=== PATIENT | male | born 1940 | race Caucasian/White ===

== ENCOUNTER → 2018-01-04 | Outpatient (CLI) | payer MEDICARE, OTHER ==
[~2018-01-04] MED LIST: AML5 PO; ASPI-715 PO; ATOR20TA65 PO; ATOR40TA24 PO; ATR80PT PO; BIOT250012 PO; BISO10TA PO; BISO1TAB95 PO; BP MEDS; CA C1TAB10 PO; CALC500T42 PO; CALCIUM; CETI-169 PO; CETI5SOL4 PO; CHOL100052 PO; CLI150 PO; CLON-298 PO; CLOP75TA43 PO; CODE118S5 PO; EVERFLEX PO; FISH OIL; FISH OIL1 CAP PO; FLUT16SP19 NS; GLUC-198 PO; GLUC500C29 PO; GLUCOSAMINE; GOLYTE PO; GUAI200T22 PO; HYDR-3250 PO; IPRA15SP7 NS; LACT1CAP6 PO; LEVO25TA56 PO; LEVO50TA86 PO; LEVO75TA73 PO; LISI-362 PO; MELA5TAB6 PO; METO50TA19 PO; MON10 PO; MULT-27 PO; MULT1CAP41 PO; PRAS10TA4 PO; RED YEAST; RED600CA19 PO; UBID100C48 PO; VITAMINS; [UNRECOGNIZED DRUG - OTHER] PO; [UNRECOGNIZED DRUG - REMARK] PO
== END ==
LOC: LAB 08:40
PROVIDERS: ATTEND Urology
DX: C61 Malignant neoplasm of prostate (principal); N52.9 Male erectile dysfunction, unspecified
CPT/HCPCS: 36415; 84153; 84403

== ENCOUNTER 2018-01-29 01:11 | Day surgery (SDC) | payer MEDICARE, OTHER ==
[~2018-01-29] VITALS: Ht 175.3 cm; Wt 79.4 kg
[~2018-01-29 01:11] MED LIST changes: +GUAI600T84; +GUAI600T84 PO; +MONT10TA PO
[2018-01-29] MEDS ORDERED: LIDOCAINE MPF 1% 5 ML VIAL ONE (06:53)
[2018-01-29] MEDS ORDERED: PROPOFOL EMUL(*) 10MG/ML 20 ML 60 ML ONE (06:53)
[2018-01-29] MEDS ORDERED: LIDOCAINE/SOD BICARB 8.4% SYR ID ONE (07:00)
[2018-01-29] MEDS ORDERED: NORMOSOL R SOLN(*) 1000 ML BAG 1,000 ML IV PRN (07:00)
[2018-01-29 07:19] VITALS: BP 154/88
[2018-01-29 08:25] VITALS: BP 102/69
--- NOTE | 2018-01-29 08:34 | Short(Outpt) Discharge Summary ---
Discharge Summary Reason for Hosp/Final Diag: (1) Family history of colon cancer Hospital Course & Plan: Colonoscopy with polypectomy x2 completed without problems. Departure Discharge to: Home, Self Care Discharge Instructions Home Meds Active Scripts Peg/Electrolytes (GOLYTELY SOLUTION) 4,000 Ml Sol[place], 1 GAL PO ONCE, #1 GAL 0 Refills Prov:HYUN PISANO MD 12/10/17 Ipratropium [place] 0.06% Ns (IPRATROPIUM BROMIDE 0.06% NS) 15 Ml [place], 2 SPRAYS NS BID, #1 BOT 6 Refills Prov:ELAYNE RECINOS JR, MD 06/26/17 Reported Medications Montelukast Sodium (SINGULAIR) 10 Mg Tablet, 1 TAB PO QDAY, TAB 01/23/18 Cetirizine Hcl (CETIRIZINE HCL) 10 Mg Tablet, 10 MG PO QDAY, TAB 01/23/18 Melatonin (MELATONIN) 5 Mg Tablet, 5 MG PO QHS 12/11/17 Levothyroxine Sodium (LEVOTHYROXINE SODIUM) 50 Mcg Tablet, 50 MCG PO QDAY, TAB 06/26/17 Atorvastatin Calcium (ATORVASTATIN CALCIUM) 20 Mg Tablet, 1 TAB PO QDAY, TAB 06/26/17 Fluticasone Prop 50 Mcg Ns (FLONASE 50 MCG NS) 16 Gm [place].susp, 1 SPRAY NS BID , BOT 06/26/16 Metoprolol Succinate (METOPROLOL SUCCINATE) 50 Mg Tab.er.24h, 1 TAB PO QDAY, TAB 06/26/16 Guaifenesin (GUAIFENESIN) 200 Mg Tablet, 200 MG PO DAILY 06/23/16 Ca Carbonate/Vitamin D3/Vit K (Citracal Soft Chew) 1 Each Tab.chew, 2 TAB PO DAILY 06/23/16 Ubidecarenone (COQ-10) 100 Mg Capsule, 200 MG PO, CAPSULE 06/23/16 Biotin (BIOTIN) 2,500 Mcg Capsule, 5000 MCG PO DAILY, CAPSULE 06/23/16 [Everflex] No Conflict Check, 2 TAB PO DAILY 06/23/16 Mu-Vits-Min Th/Lycopene/Lutein (CENTRUM SILVER TABLET) 1 Each Tablet, 1 EACH PO QDAY 06/23/16 [Total Eyebright-M] No Conflict Check, 1 TAB PO DAILY 06/23/16 Lisinopril (LISINOPRIL) 10 Mg Tablet, 10 MG PO QDAY, TAB 06/23/16 Clonazepam (CLONAZEPAM) 0.5 Mg Tablet, 0.5 MG PO QHS, #6 TAB 06/23/16 Amlodipine Besylate (NORVASC (OR EQUIV)) 5 Mg Tab, 5 MG PO DAILY, 0 Refills 04/22/12 Aspirin (Aspirin) 81 Mg Tablet.dr, 81 MG PO DAILY, 0 Refills 09/11/09 Discontinued Reported Medications Guaifenesin (Guaifenesin ER) 600 Mg Tab.er.12h, 200 MG PO QDAY 01/23/18 Guaifenesin (Guaifenesin ER) 600 Mg Tab.er.12h, 200 01/23/18 Cetirizine Hcl (CETIRIZINE HCL) 10 Mg Tablet, 10 MG PO QDAY, TAB 12/11/17 Cholecalciferol (Vitamin D3) (VITAMIN D) 1,000 Unit Tablet, 1000 UNIT PO DAILY 06/23/16 Clopidogrel Bisulfate (PLAVIX) 75 Mg Tablet, 1 TAB PO QDAY, TAB 06/23/16 Calcium (Calcium) 500 Mg Tablet, 500 MG PO DAILY, 0 Refills 09/11/09 Diet: Regular Activity: As Tolerated Special Instructions: Your colonoscopy was completed without any problems and your prep was excellent (Good Job!!). I removed 2 small polyps from your colon and they were sent to pathology. My office will call you in the next week to let you know what the polyps are but more than likely you will need another colonoscopy in 5 years if your health is still good and you can tolerate the procedure. HYUN PISANO MD Jan 29, 2018 08:34
[2018-01-29 08:56] VITALS: BP 163/92
[2018-01-29 09:09] VITALS: BP 150/83
[2018-01-29 09:11] VITALS: BP 150/94
== END 2018-01-29 09:41 | disposition home or self-care (01) ==
LOC: OR 01:11
PROVIDERS: ATTEND Surgery
DX: Z12.11 Encounter for screening for malignant neoplasm of colon (principal); D12.4 Benign neoplasm of descending colon; D12.3 Benign neoplasm of transverse colon; Z80.0 Family history of malignant neoplasm of digestive organs
CPT/HCPCS: 00811; 45385; 88305; J2001; J2704

== ENCOUNTER → 2019-01-12 | Outpatient (CLI) | payer MEDICARE, OTHER ==
[~2019-01-12] MED LIST changes: -CLON-298 PO; +CLON-331 PO; +MELA5TAB3 PO; -MELA5TAB6 PO
== END ==
LOC: LAB 15:28
PROVIDERS: ATTEND Urology
DX: C61 Malignant neoplasm of prostate (principal)
CPT/HCPCS: 36415; 84153

== ENCOUNTER 2019-03-02 20:09 | Emergency (ER) | payer MEDICARE, OTHER ==
--- NOTE | 2019-03-02 20:27 | ER Report ---
History and Physical Time Seen By MD: 20:24 Hx. of Stated Complaint: PATIENT STATES THAT HIS NOSE BLEED STARTED ABOUT 20MIN AT HOME WHEN HE WAS BLOWING HIS NOSE. PATIENT STATES THAT HE HAS A HX OF THIS AND IS ALSO ON BLOOD THINNERS AND HAS HIGH BP HPI/ROS CHIEF COMPLAINT: Nosebleed HISTORY OF PRESENT ILLNESS: 78-year-old male patient presents to emergency room with complaint of a nosebleed. Patient states that he has a history of nosebleeds. Patient states he is known to have high blood pressure, he also is on Plavix. Patient states that he started bleeding approximately 20 years prior to arrival in the emergency room. He states he did put on a nasal clamp. Patient states she's not had any improvement since then. He's been coughing up some significant amounts of blood as well as coming out of his nose. He denies any trauma. He states he did blow his nose. REVIEW OF SYSTEMS: Respiratory: No cough, no dyspnea. Cardiovascular: No chest pain, no palpitations. Gastrointestinal: No vomiting, no abdominal pain. Musculoskeletal: No back pain. Allergies: Coded Allergies: No Known Drug Allergies (Verified , 06/26/16) Home Meds Active Scripts Cephalexin 500 Mg Tab (KEFLEX 500 MG TAB) 500 Mg Tablet, 500 MG PO Q6H, #26 TAB Prov:DEVENDRA SYED 03/02/19 Ipratropium [place] 0.06% Ns (IPRATROPIUM BROMIDE 0.06% NS) 15 Ml [place], 2 SPRAYS NS BID, #1 BOT 6 Refills Prov:ELAYNE RECINOS JR, MD 06/26/17 Reported Medications Montelukast Sodium (SINGULAIR) 10 Mg Tablet, 1 TAB PO QDAY, TAB 01/23/18 Cetirizine Hcl (CETIRIZINE HCL) 10 Mg Tablet, 10 MG PO QDAY, TAB 01/23/18 Melatonin (MELATONIN) 5 Mg Tablet, 5 MG PO QHS 12/11/17 Levothyroxine Sodium (LEVOTHYROXINE SODIUM) 50 Mcg Tablet, 50 MCG PO QDAY, TAB 06/26/17 Atorvastatin Calcium (ATORVASTATIN CALCIUM) 20 Mg Tablet, 1 TAB PO QDAY, TAB 06/26/17 Fluticasone Prop 50 Mcg Ns (FLONASE 50 MCG NS) 16 Gm [place].susp, 1 SPRAY NS BID, BOT 06/26/16 Metoprolol Succinate (METOPROLOL SUCCINATE) 50 Mg Tab.er.24h, 1 TAB PO QDAY, TAB 06/26/16 Guaifenesin (GUAIFENESIN) 200 Mg Tablet, 200 MG PO DAILY 06/23/16 Ca Carbonate/Vitamin D3/Vit K (Citracal Soft Chew) 1 Each Tab.chew, 2 TAB PO DAILY 06/23/16 Ubidecarenone (COQ-10) 100 Mg Capsule, 200 MG PO, CAPSULE 06/23/16 Biotin (BIOTIN) 2,500 Mcg Capsule, 5000 MCG PO DAILY, CAPSULE 06/23/16 [Everflex] No Conflict Check, 2 TAB PO DAILY 06/23/16 Mu-Vits-Min Th/Lycopene/Lutein (CENTRUM SILVER TABLET) 1 Each Tablet, 1 EACH PO QDAY 06/23/16 [Total Eyebright-M] No Conflict Check, 1 TAB PO DAILY 06/23/16 Lisinopril (LISINOPRIL) 10 Mg Tablet, 10 MG PO QDAY, TAB 06/23/16 Clonazepam (CLONAZEPAM) 0.5 Mg Tablet, 0.5 MG PO QHS, #6 TAB 06/23/16 Amlodipine Besylate (NORVASC (OR EQUIV)) 5 Mg Tab, 5 MG PO DAILY, 0 Refills 04/22/12 Aspirin (Aspirin) 81 Mg Tablet.dr, 81 MG PO DAILY, 0 Refills 09/11/09 Past Medical/Surgical History Patient has a past medical history of angina, hypertension, hyperlipidemia, elevated creatinine, right labrum tear in the shoulder, alcohol use, prostate cancer. Patient has a surgical history of coronary stent 2, appendectomy, knee surgery. Patient has a family medical history of cancer, diabetes. Reviewed Nurses Notes: Yes Hx Smoking: No Smoking Status: Never Smoker Exposure to Second Hand Smoke?: No Hx Substance Use Disorder: No Hx Alcohol Use: Yes Constitutional Vital Sign - Last 24 Hours 03/02/19 20:21 Temp 97.9 Pulse 75 Resp 18 B/P (MAP) 159/103 Pulse Ox 89 O2 Delivery Room Air Physical Exam General Appearance: The patient is alert, has no immediate need for airway protection and no current signs of toxicity. ENT: Patient does have bleeding coming from both nostrils. Nasal clamp is in place, patient does have some blood that he is coughing up. Respiratory: Chest is non tender, lungs are clear to auscultation. Cardiac: regular rate and rhythm Gastrointestinal: Abdomen is soft and non tender, no masses, bowel sounds normal. Musculoskeletal: Neck: Neck is supple and non tender. Extremities have full range of motion and are non tender. Skin: No rashes or lesions. DIFFERENTIAL DIAGNOSIS: After history and physical exam differential diagnosis was considered for epistaxis, nasal trauma, arterial bleed. Medical Decision Making ED Course/Re-evaluation ED Course Patient is admitted to exam room, history physical obtained. Differential diagnoses were considered. On examination lungs are clear, heart is regular, abdomen is soft and nontender. Patient is bleeding profusely from both sides of his nose. He has a nasal clamp in place has bleeding around that. The patient's consent I did saturate a large cotton-tipped applicator with TXA, inserted that into both nostrils. Of those in place for approximately 15 minutes. When I cassidy aliya the cotton-tipped applicators patient had stopped bleeding from the left side of the nose. He is still continuing to bleed from the right side of the nose. As a result we did go ahead and place packing into the right side of the nose. 2 medium Rhino Rocket placed into the right nostril, I then with Lonnie-Synephrine. I monitored for 30 minutes after that was placed. Patient had no bleeding. We will go ahead and discharge him home this time. He is to follow-up with Dr. Zuleta on Saturday. We will go ahead and place him on antibiotics to prevent infection from developing. Patient verbalized understanding and agreement with plan. Decision to Disposition Date: Mar 02, 2019 Decision to Disposition Time: 21:34 Depart Departure Latest Vital Signs Vital Signs Date Time Temp Pulse Resp B/P (MAP) Pulse Ox O2 Delivery O2 Flow Rate FiO2 03/02/19 20:21 97.9 75 18 159/103 89 Room Air Impression: Primary Impression: Epistaxis Condition: Improved Disposition: HOME OR SELF-CARE Referrals: VICK ZULETA DO (PCP) New Scripts Cephalexin 500 Mg Tab (KEFLEX 500 MG TAB) 500 Mg Tablet 500 MG PO Q6H, #26 TAB Prov: DEVENDRA SYED ACCOUNT COLLECTOR 03/02/19 Patient Instructions: Nosebleed (ED) Additional Instructions: Increase fluid intake. Get plenty of rest. Follow up with Dr. Zuleta on Saturday to have the packing taken out. We will treat you with antibiotics to prevent infection in the nose. Return to the ER if condition worsens. Use Bala spray or Johnson saline gel to help moisturize the nostrils. DEVENDRA SYED Mar 02, 2019 20:27
[2019-03-02] MEDS ORDERED: TRANEXAMIC AC 1000 MG/10ML SDV ONE (20:35)
[2019-03-02 21:30] VITALS: BP 141/89
[2019-03-02] MEDS ORDERED: CEPH500T7 PO (21:39)
[2019-03-02] MEDS ORDERED: CEPHALEXIN 500 MG CAP TH 2 CAP/BOTTLE PO ONE (21:45)
[2019-03-03] MEDS ORDERED: PHENYLEPHRINE 0.5% 15 ML BTL ONE (05:07)
[2019-03-03] MEDS ORDERED: LIDO/EPI 2% MDV 1:100,000 20ML INFIL ONE (06:08)
== END 2019-03-02 22:00 | disposition home or self-care (01) ==
LOC: ER 20:50
DX: R04.0 Epistaxis (principal); I10 Essential (primary) hypertension; E78.5 Hyperlipidemia, unspecified; Z95.5 Presence of coronary angioplasty implant and graft; Z79.01 Long term (current) use of anticoagulants; Z79.82 Long term (current) use of aspirin; Z79.899 Other long term (current) drug therapy; Z85.46 Personal history of malignant neoplasm of prostate
CPT/HCPCS: 99283

== ENCOUNTER 2019-03-30 23:20 | Emergency (ER) | payer MEDICARE, OTHER ==
[~2019-03-30 23:20] MED LIST changes: +CEPH500T7 PO
--- NOTE | 2019-03-30 23:27 | ER Report ---
History and Physical Time Seen By MD: 23:22 HPI/ROS CHIEF COMPLAINT: Epistaxis HISTORY OF PRESENT ILLNESS: 78-year-old male on aspirin 81 mg and Plavix 75 mg. He was seen here approximately 4 weeks ago. He subsequent follow-up with Dr. Zeus Sotelo ENT and had cautery performed and his right nares. Patient's bleeding started approximately 1 hour prior to arrival. His blood pressures grossly elevated on arrival. He does take numerous medications to control his blood pressure. REVIEW OF SYSTEMS: Respiratory: No cough, no dyspnea. Cardiovascular: No chest pain, no palpitations. Gastrointestinal: No vomiting, no abdominal pain. Musculoskeletal: No back pain. Allergies: Coded Allergies: No Known Drug Allergies (Verified , 03/30/19) Home Meds Active Scripts Ipratropium [place] 0.06% Ns (IPRATROPIUM BROMIDE 0.06% NS) 15 Ml [place], 2 SPRAYS NS BID, #1 BOT 6 Refills Prov:ZEUS SOTELO JR, MD 06/26/17 Reported Medications Clopidogrel Bisulfate (CLOPIDOGREL) 75 Mg Tablet, 1 TAB PO QDAY, TAB 03/30/19 Montelukast Sodium (SINGULAIR) 10 Mg Tablet, 1 TAB PO QDAY, TAB 01/23/18 Cetirizine Hcl (CETIRIZINE HCL) 10 Mg Tablet, 10 MG PO QDAY, TAB 01/23/18 Melatonin (MELATONIN) 5 Mg Tablet, 5 MG PO QHS 12/11/17 Levothyroxine Sodium (LEVOTHYROXINE SODIUM) 50 Mcg Tablet, 50 MCG PO QDAY, TAB 06/26/17 Atorvastatin Calcium (ATORVASTATIN CALCIUM) 20 Mg Tablet, 1 TAB PO QDAY, TAB 06/26/17 Fluticasone Prop 50 Mcg Ns (FLONASE 50 MCG NS) 16 Gm [place].susp, 1 SPRAY NS BID, BOT 06/26/16 Metoprolol Succinate (METOPROLOL SUCCINATE) 50 Mg Tab.er.24h, 1 TAB PO QDAY, TAB 06/26/16 Guaifenesin (GUAIFENESIN) 200 Mg Tablet, 200 MG PO DAILY 06/23/16 Ca Carbonate/Vitamin D3/Vit K (Citracal Soft Chew) 1 Each Tab.chew, 2 TAB PO DAILY 06/23/16 Ubidecarenone (COQ-10) 100 Mg Capsule, 200 MG PO, CAPSULE 06/23/16 Biotin (BIOTIN) 2,500 Mcg Capsule, 5000 MCG PO DAILY, CAPSULE 06/23/16 [Everflex] No Conflict Check, 2 TAB PO DAILY 06/23/16 Mu-Vits-Min Th/Lycopene/Lutein (CENTRUM SILVER TABLET) 1 Each Tablet, 1 EACH PO QDAY 06/23/16 [Total Eyebright-M] No Conflict Check, 1 TAB PO DAILY 06/23/16 Lisinopril (LISINOPRIL) 10 Mg Tablet, 10 MG PO QDAY, TAB 06/23/16 Clonazepam (CLONAZEPAM) 0.5 Mg Tablet, 0.5 MG PO QHS, #6 TAB 06/23/16 Amlodipine Besylate (NORVASC (OR EQUIV)) 5 Mg Tab, 5 MG PO DAILY, 0 Refills 04/22/12 Aspirin (Aspirin) 81 Mg Tablet.dr, 81 MG PO DAILY, 0 Refills 09/11/09 Past Medical/Surgical History Patient has a past medical history of angina, hypertension, hyperlipidemia, elevated creatinine, right labrum tear in the shoulder, alcohol use, prostate cancer. Patient has a surgical history of coronary stent 2, appendectomy, knee surgery. Patient has a family medical history of cancer, diabetes. Hx Smoking: No Smoking Status: Never Smoker Exposure to Second Hand Smoke?: No Hx Substance Use Disorder: No Hx Alcohol Use: Yes Constitutional Vital Sign - Last 24 Hours 03/30/19 03/30/19 03/30/19 03/30/19 23:24 23:30 23:35 23:35 Temp 98.6 Pulse 79 70 Resp 16 B/P (MAP) 172/109 (130) 159/96 (117) 159/96 Pulse Ox 94 90 O2 Delivery Room Air 03/30/19 03/31/19 23:50 00:00 Pulse 66 B/P (MAP) 153/89 (110) Pulse Ox 90 Physical Exam Vital signs stable, grossly elevated blood pressure 172/109 General Appearance: The patient is alert, has no immediate need for airway protection and no current signs of toxicity. Dark Bleeding from right nares. Eyes: Pupils equal and round no injection. Respiratory: Chest is non tender, lungs are clear to auscultation. Cardiac: regular rate and rhythm Gastrointestinal: Abdomen is soft and non tender, no masses, bowel sounds normal. Musculoskeletal: Neck: Neck is supple and non tender. Extremities have full range of motion and are non tender. Skin: No rashes or lesions. DIFFERENTIAL DIAGNOSIS: After history and physical exam differential diagnosis was considered for epistaxis, septal perforation, excessive anticoagulation, history of nosebleeds Medical Decision Making ED Course/Re-evaluation ED Course Patient was admitted to an examination room. H&P was done. The differential diagnoses was considered. Patient with gross bleeding out of his right nares similar to his presentation 3 weeks ago. She is on Plavix and aspirin. Epistaxis control was performed as noted below. Patient has mildly elevated blood pressure. Epistaxis control. Patient's nose was packed with a cotton ball saturated with Lonnie-Synephrine, lidocaine 1% with epinephrine. It was left in place for 10 minutes. It was removed. There was a punctate bleeding area on the left right [place]'s area. Cautery was attempted with silver nitrate. Patient then subsequent he sneezed and bleeding began to pour from his right nares. His nasal passage was repacked with a cotton ball. Saturated with Lonnie-Synephrine and lidocaine 1% with epinephrine. An minutes of observation, he was still bleeding quite profusely from the site. The packing was removed. And a medium Rhino Rocket was placed in the nares. It was infiltrated with lidocaine with epinephrine. And pressure was applied. Epistaxis control was obtained. Patient was observed for 40 minutes without active bleeding. He is advised to leave the packing in place for 3 days and follow-up with Dr. Sotelo, her primary care to have it removed. Patient's cautioned return to the ER for any bleeding. Decision to Disposition Date: Mar 31, 2019 Decision to Disposition Time: 01:11 Depart Departure Latest Vital Signs Vital Signs Date Time Temp Pulse Resp B/P (MAP) Pulse Ox O2 Delivery O2 Flow Rate FiO2 03/31/19 00:00 153/89 (110) 03/30/19 23:50 66 90 03/30/19 23:35 98.6 16 Room Air Impression: Primary Impression: Epistaxis Additional Impression: Hypertension Condition: Improved Disposition: HOME OR SELF-CARE Referrals: VICK ZULETA DO (PCP) ZEUS SOTELO JR, MD Patient Instructions: Nosebleed (ED) Additional Instructions: Packing must remain in place for 3 days. Follow-up with your primary care or Dr. Sotelo reevaluation this week Problem Qualifiers Additional Impression: Hypertension Hypertension type: essential hypertension Qualified Codes: I10 - Essential (primary) hypertension JOSH VASQUEZ DO Mar 30, 2019 23:27
[2019-03-30] MEDS ORDERED: CLOP75TA PO (23:38)
[2019-03-31] VITALS: BP 153/89
[2019-03-31] MEDS ORDERED: PHENYLEPHRINE 0.5% 15 ML BTL ONE (01:35)
[2019-03-31] MEDS ORDERED: LIDO/EPI 2% MDV 1:100,000 20ML INFIL ONE (01:36)
== END 2019-03-31 01:12 | disposition home or self-care (01) ==
LOC: ER 23:59
DX: R04.0 Epistaxis (principal); D68.32 Hemorrhagic disorder due to extrinsic circulating anticoagulants; T45.525A Adverse effect of antithrombotic drugs, initial encounter; I10 Essential (primary) hypertension; E78.5 Hyperlipidemia, unspecified; Z85.46 Personal history of malignant neoplasm of prostate; Z79.02 Long term (current) use of antithrombotics/antiplatelets; Z79.82 Long term (current) use of aspirin
CPT/HCPCS: 30903; 99283; A9270

== ENCOUNTER 2019-04-02 14:11 | Emergency (ER) | payer MEDICARE, OTHER ==
[~2019-04-02 14:11] MED LIST changes: +CLOP75TA PO
--- NOTE | 2019-04-02 14:29 | ER Report ---
History and Physical Time Seen By MD: 14:24 HPI/ROS CHIEF COMPLAINT: Nasal packing removal HISTORY OF PRESENT ILLNESS: 78-year-old male patient presents to emergency room with complaint of needing nasal packing removed. Patient states that he was trying to put air into his nose 3 days ago. He states that at that time it just started bleeding. He is not able to get it stopped. He did come to the emergency room and had packing placed that time. Patient was told we will place in follow- up today to have packing removed. He denies any difficulties. He denies any fevers, chills, nausea, vomiting or diarrhea. He states he has been taking antibiotics as directed. Allergies: Coded Allergies: No Known Drug Allergies (Verified , 04/02/19) Home Meds Active Scripts Ipratropium [place] 0.06% Ns (IPRATROPIUM BROMIDE 0.06% NS) 15 Ml [place], 2 SPRAYS NS BID, #1 BOT 6 Refills Prov:ELAYNE RECINOS JR, MD 06/26/17 Reported Medications Clopidogrel Bisulfate (CLOPIDOGREL) 75 Mg Tablet, 1 TAB PO QDAY, TAB 03/30/19 Montelukast Sodium (SINGULAIR) 10 Mg Tablet, 1 TAB PO QDAY, TAB 01/23/18 Cetirizine Hcl (CETIRIZINE HCL) 10 Mg Tablet, 10 MG PO QDAY, TAB 01/23/18 Melatonin (MELATONIN) 5 Mg Tablet, 5 MG PO QHS 12/11/17 Levothyroxine Sodium (LEVOTHYROXINE SODIUM) 50 Mcg Tablet, 50 MCG PO QDAY, TAB 06/26/17 Atorvastatin Calcium (ATORVASTATIN CALCIUM) 20 Mg Tablet, 1 TAB PO QDAY, TAB 06/26/17 Fluticasone Prop 50 Mcg Ns (FLONASE 50 MCG NS) 16 Gm [place].susp, 1 SPRAY NS BID, BOT 06/26/16 Metoprolol Succinate (METOPROLOL SUCCINATE) 50 Mg Tab.er.24h, 1 TAB PO QDAY, TAB 06/26/16 Guaifenesin (GUAIFENESIN) 200 Mg Tablet, 200 MG PO DAILY 06/23/16 Ca Carbonate/Vitamin D3/Vit K (Citracal Soft Chew) 1 Each Tab.chew, 2 TAB PO DAILY 06/23/16 Ubidecarenone (COQ-10) 100 Mg Capsule, 200 MG PO, CAPSULE 06/23/16 Biotin (BIOTIN) 2,500 Mcg Capsule, 5000 MCG PO DAILY, CAPSULE 06/23/16 [Everflex] No Conflict Check, 2 TAB PO DAILY 06/23/16 Mu-Vits-Min Th/Lycopene/Lutein (CENTRUM SILVER TABLET) 1 Each Tablet, 1 EACH PO QDAY 06/23/16 [Total Eyebright-M] No Conflict Check, 1 TAB PO DAILY 06/23/16 Lisinopril (LISINOPRIL) 10 Mg Tablet, 10 MG PO QDAY, TAB 06/23/16 Clonazepam (CLONAZEPAM) 0.5 Mg Tablet, 0.5 MG PO QHS, #6 TAB 06/23/16 Amlodipine Besylate (NORVASC (OR EQUIV)) 5 Mg Tab, 5 MG PO DAILY, 0 Refills 04/22/12 Aspirin (Aspirin) 81 Mg Tablet.dr, 81 MG PO DAILY, 0 Refills 09/11/09 Past Medical/Surgical History Patient has a past medical history of angina, hypertension, hyperlipidemia, elevated creatinine, right labrum tear in the shoulder, alcohol use, prostate cancer. Patient has a surgical history of coronary stent 2, appendectomy, knee surgery. Patient has a family medical history of cancer, diabetes. Reviewed Nurses Notes: Yes Hx Smoking: No Smoking Status: Never Smoker Exposure to Second Hand Smoke?: No Hx Substance Use Disorder: No Hx Alcohol Use: Yes Constitutional Vital Sign - Last 24 Hours 04/02/19 04/02/19 14:27 15:05 Temp 97.8 Pulse 63 Resp 16 B/P (MAP) 155/95 161/88 (112) Pulse Ox 93 O2 Delivery Room Air Physical Exam General Appearance: The patient is alert, has no immediate need for airway protection and no current signs of toxicity. ENT: After removal of the packing there was no bleeding noted. Respiratory: Chest is non tender, lungs are clear to auscultation. Cardiac: regular rate and rhythm DIFFERENTIAL DIAGNOSIS: After history and physical exam differential diagnosis was considered for nasal packing removed, epistaxis. Medical Decision Making ED Course/Re-evaluation ED Course Patient was admitted to an exam room, history and physical were obtained. Differential diagnoses were considered. On examination lungs are clear, heart regular, patient has packing in the right nare. Vacuum was removed. There was no bleeding noted at that time. I did look in the nare and there was no erythema,redness.I did monitor the patient for 15 minutes. During that time he had no bleeding. Patient was discharged home with instructions to follow-up. Patient verbalized understanding and agreement with plan. Decision to Disposition Date: Apr 02, 2019 Decision to Disposition Time: 14:33 Depart Departure Latest Vital Signs Vital Signs Date Time Temp Pulse Resp B/P (MAP) Pulse Ox O2 Delivery O2 Flow Rate FiO2 04/02/19 15:05 161/88 (112) 04/02/19 14:27 97.8 63 16 93 Room Air Impression: Primary Impression: Encounter for removal of nasal packing Condition: Improved Disposition: HOME OR SELF-CARE Referrals: VICK ZULETA DO (PCP) Patient Instructions: Nosebleed (ED) Additional Instructions: Increase fluid intake. Continue to use [place]. Be gentle when using the [place]. Follow up with Dr. Recinos with any concerns. Return to the ER if condition worsens. Continue with your current medications. DEVENDRA SYED Apr 02, 2019 14:29
[2019-04-02 15:05] VITALS: BP 161/88
== END 2019-04-02 15:10 | disposition home or self-care (01) ==
LOC: ER 14:30
DX: R04.0 Epistaxis (principal)
CPT/HCPCS: 99281